=== PATIENT | female | born 1990 | race Caucasian/White ===

== ENCOUNTER 2021-06-17 22:17 | Emergency (ER) | payer SELFPAY ==
--- NOTE | ~2021-06-17 | XR_ITS ---
EXAMINATION: XR ribs LT 2V w CXR 2V DATE: 06/18/2021 01:14 INDICATION: Shortness of breath and sharp lower rib pains with inspiration TECHNIQUE: PA and lateral views of the chest and 3 views of the left ribs were obtained. COMPARISON: None FINDINGS: Nondisplaced fractures of the anterior left ninth and lateral left 10th ribs. Lungs are clear with no focal airspace opacities, pulmonary edema, pleural effusion or pneumothorax. Cardiomediastinal silho uette is normal. Mild thoracic dextrocurvature. IMPRESSION: 1. Nondisplaced left ninth and 10th rib fractures. 2. No pneumothorax or other acute cardiopulmonary disease. Reviewed, dictated and finalized at location A. [employer]PER[employer]
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
[2021-06-17 22:46] VITALS: BP 136/99; PULSE 97; RESP 18; TEMP 36.4; O2SAT 100
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
[2021-06-18] MEDS: HYDROcodone/acetaminophen (*CRX) 7.5-325 MG TABLET 1 TAB PO (02:05)
--- NOTE | 2021-06-18 02:40 | PC.NURSE ---
Pt informed this RN to contact [place] [employer] Officer Amando upon discharge. Officer Amando is on another call right now and will contact the emergency department when he is available.
--- NOTE | 2021-06-18 02:46 | PC.NURSE ---
Officer Amando called back to inform this RN that he will be coming to pick the pt up.
[2021-06-18 02:51] VITALS: BP 97/61; PULSE 64; RESP 16; O2SAT 97
== END 2021-06-18 02:54 | disposition home or self-care (01) ==
PROVIDERS: Emergency Provider Emergency Medicine
DX: S22.32XA Fracture of one rib, left side, initial encounter for closed fracture (principal); S00.83XA Contusion of other part of head, initial encounter; Y04.0XXA Assault by unarmed brawl or fight, initial encounter
CPT/HCPCS: 70150; 71046; 71100; 99284; A9270